=== PATIENT | female | born 1960 | race Caucasian/White ===

== ENCOUNTER → 2025-04-23 | Outpatient (CLI) | payer MEDICARE, SELFPAY ==
--- NOTE | 2025-04-23 10:08 | XR_ITS ---
Examination: Knee, right, 3 views Technique: Knee AP, lateral, oblique 3 views Date and time of exam: April, 10:15 a.m. INDICATIONS: Injury to the knee 4 days ago with pain and difficulty walking. FINDINGS: Significant osteopenia. Moderate tricompartment osteoarthritis. No fracture. Moderate knee effusion IMPRESSION: No acute fracture
== END | disposition home or self-care (01) ==
PROVIDERS: PCP Nurse Practitioner Family; Referring Provider Nurse Practitioner Family; Visit Provider Nurse Practitioner Family
DX: S89.91XA Unspecified injury of right lower leg, initial encounter (principal); X58.XXXA Exposure to other specified factors, initial encounter
CPT/HCPCS: 73562

== ENCOUNTER → 2025-05-06 | Outpatient (CLI) | payer MEDICARE, SELFPAY ==
--- NOTE | 2025-05-06 14:00 | XR_ITS ---
Exam: MRI knee without contrast, right Date and time of exam: May 06, 2025, 1408 hours INDICATIONS: Injury to the knee April 19, 2025, patient heard a loud pop after twisting injury followed by pain joint clicking knee buckling and stiffness swelling instability Technique: Multiple axial, coronal, and sagittal sections on the knee have been obtained. T2-Weighted sagittal, fat-suppressed images, TR 3,500, TE 62, T2 weighted coronal fat-saturated images, TR 3,500, TE 62 Proton density sagittal sections, TR 1800, TE 31. T-1 weighted coronal images, TR 524, TE 13.0 Findings: Medial meniscus anterior horn intact. Medial meniscus, body truncation inner margin, small vertical tears, coronal image 17. Posterior horn medial meniscus truncation inner margin intrasubstance degeneration. Lateral meniscus anterior horn is intact Lateral meniscus, body is intact Posterior horn lateral meniscus is intact Anterior cruciate ligament high-grade sprain, suspicious for complete tear upper anterior cruciate ligament Posterior cruciate ligament appears intact. Knee effusion is large. Quadriceps and patellar tendons appear intact. There is no evidence of tendinosis. Inflammatory change or fracture of Hoffa's fat pad is not seen. Medial patellar facet demonstrates severe thinning. Lateral patellar facet cartilage demonstrates severe thinning. Trochlear cartilage demonstrates severe thinning. Marrow signal increased in the tibial metaphyseal region with fracture of the lateral tibial plateau, at least 3 mm depression of the fracture fragments. Medial collateral ligament appears intact. No meniscocapsular separation is seen. Illiotibial band and fibular collateral ligament are intact. Biceps femoris tendons appear intact. Medial femoral condylar articular cartilage demonstrates severe thinning. Lateral femoral condylar articular cartilage demonstrates severe thinning. Tibial plateau cartilage demonstrates severe thinning. Impression: Comminuted fractures with depression lateral tibial plateau Tears of the body and posterior horn medial meniscus High-grade sprain versus complete tear anterior cruciate ligament
== END | disposition home or self-care (01) ==
LOC: SMRI 13:16
PROVIDERS: PCP Nurse Practitioner Family; Referring Provider Nurse Practitioner Family; Visit Provider Nurse Practitioner Family
DX: S82.141A Displaced bicondylar fracture of right tibia, initial encounter for closed fracture (principal); S83.241A Other tear of medial meniscus, current injury, right knee, initial encounter; X50.1XXA Overexertion from prolonged static or awkward postures, initial encounter; S83.511A Sprain of anterior cruciate ligament of right knee, initial encounter; Y93.9 Activity, unspecified
CPT/HCPCS: 73721